=== PATIENT | female | born 1935 | race Caucasian/White ===

== ENCOUNTER 2017-11-09 17:19 | Emergency (ER) | payer MEDICARE, OTHER ==
[2015-04-15 07:20] VITALS: BMI 28.6
[~2017-11-09 17:19] MED LIST: ASPIRIN EC81 M1 PO; COLACE100 MG PO; ESTRACE2 MG PO; HYDROCODONE-APA1 TAB PO; HYZAAR 100-25 T1 TAB PO; LIPITOR20 MG PO; MULTI-DAY VITAM1 TAB PO; NEXIUM20 MG PO; OCUVITE TABLET1 TA1 PO; OXYBUTYNIN CHLOR5 MG PO; PAROXETINE HCL10 MG PO; VITAMIN B-12500 MC1 PO
== END 2017-11-09 20:42 | disposition home or self-care (01) ==
LOC: D.ER 17:19
DX: S01.112A Laceration without foreign body of left eyelid and periocular area, initial encounter (principal); W01.0XXA Fall on same level from slipping, tripping and stumbling without subsequent striking against object, initial encounter; Y93.89 Activity, other specified; Y92.019 Unspecified place in single-family (private) house as the place of occurrence of the external cause